=== PATIENT | male | born 1955 | race Caucasian/White ===

== ENCOUNTER 2020-06-25 09:25 | Emergency (ER) | payer MEDICARE, MEDICAID ==
[~2020-06-25] VITALS: Ht 167.6 cm; Wt 79.6 kg
[2020-06-25 09:28] VITALS: BP 213/95
[2020-06-25] MEDS ORDERED: ketorolac tromethamine 15mg/ml inj. IM ONE (09:50)
[2020-06-25] MEDS ORDERED: IBUP-1984 PO (09:55)
== END 2020-06-25 10:03 | disposition home or self-care (01) ==
LOC: ER 09:26
DX: M79.632 Pain in left forearm (principal); G89.29 Other chronic pain; M54.9 Dorsalgia, unspecified; G80.9 Cerebral palsy, unspecified
CPT/HCPCS: 96372; 99283; J1885

== ENCOUNTER 2020-07-11 15:56 | Emergency (ER) | payer MEDICARE, MEDICAID ==
[~2020-07-11] VITALS: Ht 160 cm; Wt 75.0 kg
[2020-07-11 16:04] VITALS: BP 178/96
[2020-07-11 16:46] LABS: BASOPHILS % (AUTO) 0.5 % (0-1); EOSINOPHILS # (AUTO) 0.1 X10'3 (0-0.9); EOSINOPHILS % (AUTO) 0.8 % (0-6); HEMATOCRIT 45.1 % (42.0-52.0); HEMOGLOBIN 15.4 g/dl (14.0-17.9); LYMPHOCYTES # (AUTO) 1.2 X10'3 (1.1-4.8); LYMPHOCYTES % (AUTO) 15.1 % (21-51); MEAN CORPUSCULAR HEMOGLOBIN 28.8 PG (27.0-31.0); MEAN CORPUSCULAR HGB CONC 34.2 g/dL (33.0-36.5); MEAN CORPUSCULAR VOLUME 84.4 FL (78-98); MEAN PLATELET VOLUME 8.6 FL (7.4-10.4); MONOCYTES # (AUTO) 0.4 X10'3 (0-0.9); MONOCYTES % (AUTO) 5.6 % (2-12); PLATELET COUNT 260 X10'3 (140-440); RED BLOOD COUNT 5.35 X10'6 (4.70-6.10); RED CELL DISTRIBUTION WIDTH 15.1 % (11.5-14.5); WHITE BLOOD COUNT 7.7 X10'3 (4.5-11.0)
[2020-07-11 17:03] LABS: ALANINE AMINOTRANSFERASE 29 U/L (12-78); ALBUMIN 3.9 G/DL (3.4-5.0); ALBUMIN/GLOBULIN RATIO 1.3 (1.1-1.5); ALKALINE PHOSPHATASE 73 IU/L (46-116); ANION GAP 10 (8-16); ASPARTATE AMINO TRANSFERASE 11 U/L (10-37); BLOOD UREA NITROGEN 13 MG/DL (7-18); BUN/CREATININE RATIO 16.9 (5.4-32.0); CALCIUM 8.4 MG/DL (8.5-10.1); CHLORIDE 107 MMOL/L (99-107); CREATININE 0.77 MG/DL (0.60-1.10); GLUCOSE 105 MG/DL (70-104); POTASSIUM 3.1 MMOL/L (3.5-5.1); SODIUM 142 MMOL/L (135-145); TOTAL CARBON DIOXIDE 25.2 MMOL/L (24-32); eGFR > 90 ML/MIN
[2020-07-11] MEDS ORDERED: ketorolac tromethamine 15mg/ml inj. IM ONE (17:25)
[2020-07-11] MEDS ORDERED: ketorolac trometh. 30mg/ml inj. IM ONE (17:35)
[2020-07-11] MEDS ORDERED: potassium Cl 20 mEq SR tablet PO STA (18:55)
== END 2020-07-11 19:35 | disposition home or self-care (01) ==
LOC: ER 15:57
DX: M79.602 Pain in left arm (principal); G89.29 Other chronic pain; F17.200 Nicotine dependence, unspecified, uncomplicated
CPT/HCPCS: 36415; 71045; 80053; 83880; 84484; 85025; 93005; 99285

== ENCOUNTER 2021-03-04 06:51 | Inpatient (IN) | payer MEDICARE, MEDICAID ==
[2021-03-04] VITALS (14 sets, daily range): BP systolic 123–157; BP diastolic 58–86
[~2021-03-04] VITALS: Ht 167.6 cm; Wt 72.7 kg
[2021-03-04] MEDS ORDERED: normal saline 1000ml 1,000 ML IV ONE ×2 (07:05→11:15)
[2021-03-04] MEDS ORDERED: morphine 4 MG/ML inj SYRINge IV ONE (07:05)
[2021-03-04] MEDS ORDERED: ondansetron/PF 4mg/2ml inj IV ONE (07:05)
[2021-03-04 10:34] LABS: BASOPHILS % (AUTO) 0.1 % (0-1); EOSINOPHILS % (AUTO) 0.2 % (0-6); HEMATOCRIT 47.7 % (42.0-52.0); HEMOGLOBIN 15.8 g/dl (14.0-17.9); LYMPHOCYTES # (AUTO) 0.8 X10'3 (1.1-4.8); MEAN CORPUSCULAR HEMOGLOBIN 28.5 PG (27.0-31.0); MEAN CORPUSCULAR HGB CONC 33.1 g/dL (33.0-36.5); MEAN CORPUSCULAR VOLUME 86.1 FL (78-98); MEAN PLATELET VOLUME 8.7 FL (7.4-10.4); MONOCYTES % (AUTO) 6.9 % (2-12); NEUTROPHILS % (AUTO) 86.8 % (42-75); PLATELET COUNT 256 X10'3 (140-440); RED BLOOD COUNT 5.53 X10'6 (4.70-6.10); RED CELL DISTRIBUTION WIDTH 14.8 % (11.5-14.5); WHITE BLOOD COUNT 13.9 X10'3 (4.5-11.0)
[2021-03-04 10:37] LABS: ALANINE AMINOTRANSFERASE 21 U/L (12-78); ALBUMIN/GLOBULIN RATIO 1.2 (1.1-1.5); ALKALINE PHOSPHATASE 74 IU/L (46-116); ANION GAP 12 (8-16); ASPARTATE AMINO TRANSFERASE 13 U/L (10-37); BLOOD UREA NITROGEN 18 MG/DL (7-18); BUN/CREATININE RATIO 23.1 (5.4-32.0); CALCIUM 8.3 MG/DL (8.5-10.1); CHLORIDE 108 MMOL/L (99-107); CREATININE 0.78 MG/DL (0.60-1.10); GLUCOSE 106 MG/DL (70-104); POTASSIUM 3.7 MMOL/L (3.5-5.1); SODIUM 146 MMOL/L (135-145); TOTAL CARBON DIOXIDE 25.9 MMOL/L (24-32); TOTAL PROTEIN 7.4 G/DL (6.4-8.2); eGFR > 90 ML/MIN
[2021-03-04 10:41] LABS: BILIRUBIN,DIRECT 0.2 MG/DL (0-0.3); LIPASE 73 U/L (73-393); TROPONIN I < 0.04 NG/ML (0.0-0.05)
--- NOTE | 2021-03-04 11:00 | NUR ---
Pt is awake and alert. C/O upper abd pain and pain in L side of chest. Denies sob.
[2021-03-04] MEDS ORDERED: iohexol 300mg/ml 100ml inj. ONE (11:20)
[2021-03-04 12:00] LABS: COLOR,URINE YELLOW (Yellow); GLUCOSE, URINE NEGATIVE (Neg); KETONES,URINE 40 mg/dl (Neg); LEUKOCYTE ESTERASE ,URINE NEGATIVE (Neg); NITRITES, URINE NEGATIVE (Neg); OCCULT BLOOD,URINE TRACE-INTACT (Neg); PH,URINE 5.5 (4.8-8.0); PROTEIN,URINE NEGATIVE (Neg); UROBILINOGEN,URINE 0.2 E.U/dL (0.2-1.0)
[2021-03-04 12:01] LABS: CLARITY,URINE SLIGHTLY CLOUDY (Clear); UA COLLECTION TYPE VOIDED
[2021-03-04 12:07] LABS: MUCUS STRANDS MODERATE /LPF (Neg); SQUAMOUS EPITHELIAL CELL,UR FEW /LPF (FEW)
[2021-03-04 12:08] LABS: BACTERIA,URINE FEW /HPF (Neg)
[2021-03-04 12:09] LABS: CAL OXALATE CRYSTALS FEW /HPF (NEGATIVE); WBC,URINE 0-4 /HPF (0-4)
[2021-03-04] MEDS ORDERED: morphine 2 MG/ML inj. syringe IV PRN ×3 (16:15→17:45)
[2021-03-04] MEDS ORDERED: ondansetron/PF 4mg/2ml inj IV PRN ×2 (16:15→17:45)
[2021-03-04] MEDS ORDERED: acetaminophen 325mg tablet PO PRN (16:15)
[2021-03-04] MEDS ORDERED: potassium Cl 40MEQ/1/2NS 520ml 520 ML IV PRN ×2 (16:15)
[2021-03-04] MEDS ORDERED: INDOCYANINE GREEN 25 MG/10 ML VIAL IV ONE (16:20)
[2021-03-04] MEDS ORDERED: piperacillin/tazo 4.5gm/100ml 100 ML IV ONE (16:25)
[2021-03-04] MEDS ORDERED: BUPIVAcaine 0.5% inj/PF 30 ML ONE (16:28)
[2021-03-04] MEDS ORDERED: LIDOcaine 1% 30ml preserv. free vial ONE (16:28)
[2021-03-04] MEDS ORDERED: ASPI-109 PO (16:59)
[2021-03-04] MEDS: levoFLOXACIN-Levaquin 500mg/D5 100 ML IV SCH (17:11)
--- NOTE | 2021-03-04 17:16 | NUR ---
Report given to Josephine in the OR.
[2021-03-04] MEDS ORDERED: morphine 4 MG/ML inj SYRINge IV PRN (17:45)
[2021-03-04] MEDS ORDERED: proCHLORperazine 10 MG/2 ml inj IV PRN (17:45)
[2021-03-04] MEDS ORDERED: meperidine/PF 25mg/ml syringe IV PRN ×3 (17:45)
[2021-03-04] MEDS ORDERED: ringers solution, lacted 1,000 ML IV SCH (17:45)
[2021-03-04] MEDS ORDERED: rocuronium 10mg/ml inj IV ONE (17:49)
[2021-03-04] MEDS ORDERED: fentaNYL/PF 50MCG/1 ML 2ML syringe ONE (17:49)
[2021-03-04] MEDS ORDERED: propofol inj 20 ML IV ONE (17:49)
[2021-03-04] MEDS ORDERED: midazolam 1 mg/ML 2ml injection ONE (17:49)
[2021-03-04] MEDS ORDERED: sevoflurane 250ml liquid IH ONE (17:54)
[2021-03-04] MEDS ORDERED: neostigmine methylsulfate 1 MG/ML 10ml vial ONE (19:09)
[2021-03-04] MEDS ORDERED: glycopyrrolate 0.2mg/ml inj ONE (19:09)
--- NOTE | 2021-03-04 19:30 | NUR ---
Received from OR via BED, accompanied by Anesthesiologist DR LAZO and report given by Anesthesiologist. PATIENT STILL DROWSY, NO S/S OF PAIN, V/S WNL, SCD ON, 20G TO RUE, LAP SURGICAL SITES X 4 TO ABDOMEN- CDI.
[2021-03-04] MEDS ORDERED: HYDROcodone/acetaminophen 10/325mg tab PO PRN (19:35)
[2021-03-04] MEDS: K and/or MAG REPLACEMENT MC SCH (20:00)
[2021-03-04] MEDS ORDERED: piperacillin/tazo 4.5gm/100ml 100 ML IV SCH (20:00)
[2021-03-04] MEDS: normal saline 1000ml 1,000 ML IV SCH (20:34)
--- NOTE | 2021-03-04 20:40 | NUR ---
PT AWAKE, ABLE TO ANSWER QUESTIONS APPROPRIATELY, VSS, C/O DULL PAIN IN TUMMY 'KIND OF LIKE GAS" EDUCATED REGARDING TYPE OF SURGERY AND WHAT TO EXPECT AFTERWARD. PIV 20G TO RIGHT FA-NS RUNNING AT 100ML/HR, LAP SITES X4 - CDI, SCDS IN PLACE, PATIENT TAKEN TO ROOM 356A WITH ALL BELONGINGS AND HOOKED UP TO MONITORS IN ROOM AND GIVEN CALL LIGHT, REPORT GIVEN TO ELVIN SALAZAR WHO HAS TAKEN OVER PATIENT CARE.
[2021-03-05] VITALS: BP 124/70
[2021-03-05 00:30] VITALS: BP 126/66
[2021-03-05] MEDS: normal saline 1000ml 1,000 ML IV SCH ×3 (04:57→19:52)
[2021-03-05 06:13] LABS: BASOPHILS % (AUTO) 0.1 % (0-1); EOSINOPHILS % (AUTO) 0.1 % (0-6); HEMATOCRIT 43.5 % (42.0-52.0); HEMOGLOBIN 14.3 g/dl (14.0-17.9); LYMPHOCYTES # (AUTO) 0.8 X10'3 (1.1-4.8); LYMPHOCYTES % (AUTO) 6.7 % (21-51); MEAN CORPUSCULAR HEMOGLOBIN 28.4 PG (27.0-31.0); MEAN CORPUSCULAR HGB CONC 32.9 g/dL (33.0-36.5); MEAN CORPUSCULAR VOLUME 86.5 FL (78-98); MEAN PLATELET VOLUME 8.6 FL (7.4-10.4); MONOCYTES # (AUTO) 1.2 X10'3 (0-0.9); MONOCYTES % (AUTO) 9.9 % (2-12); NEUTROPHILS # (AUTO) 10.5 X10'3 (1.8-7.7); NEUTROPHILS % (AUTO) 83.2 % (42-75); PLATELET COUNT 199 X10'3 (140-440); RED BLOOD COUNT 5.03 X10'6 (4.70-6.10); RED CELL DISTRIBUTION WIDTH 14.7 % (11.5-14.5); WHITE BLOOD COUNT 12.6 X10'3 (4.5-11.0)
[2021-03-05 06:23] LABS: ALANINE AMINOTRANSFERASE 29 U/L (12-78); ALKALINE PHOSPHATASE 71 IU/L (46-116); ANION GAP 11 (8-16); ASPARTATE AMINO TRANSFERASE 26 U/L (10-37); BILIRUBIN,TOTAL 1.8 MG/DL (0.1-1.0); BLOOD UREA NITROGEN 7 MG/DL (7-18); BUN/CREATININE RATIO 11.9 (5.4-32.0); CALCIUM 7.2 MG/DL (8.5-10.1); CHLORIDE 106 MMOL/L (99-107); CREATININE 0.59 MG/DL (0.60-1.10); GLUCOSE 97 MG/DL (70-104); POTASSIUM 3.4 MMOL/L (3.5-5.1); SODIUM 140 MMOL/L (135-145); TOTAL CARBON DIOXIDE 23.3 MMOL/L (24-32); eGFR > 90 ML/MIN
--- NOTE | 2021-03-05 06:30 | NUR ---
Patient in room [facility]. I have received report from Evelio SALAZAR and had the opportunity to ask questions and assume patient care.
--- NOTE | 2021-03-05 06:31 | NUR ---
Problems reprioritized. Patient report given, questions answered & plan of care reviewed with OSWALDO. Addendum: 03/05/21 at 0631 by Jaspreet Kitchen RN Amended: Links added.
[2021-03-05 07:00] VITALS: BP 133/61
[2021-03-05] MEDS: HYDROcodone/acetaminophen 5mg/325mg tablet PO PRN ×2 (07:59→22:01)
[2021-03-05] MEDS: levoFLOXACIN-Levaquin 500mg/D5 100 ML IV SCH (07:59)
[2021-03-05] MEDS: K and/or MAG REPLACEMENT MC SCH ×2 (08:00→20:00)
--- NOTE | 2021-03-05 08:12 | NUR ---
message sent to Pharmacy: Please send IV bag for K+ replacement (3.4) thank you, Carolyn [phone]
--- NOTE | 2021-03-05 09:00 | NUR ---
Pt seems to have a basic understanding of his medical care and the surgical procedure done- he states surgery was because his "stomach hurt and I think it was because of something I ate". Pt educated to the s/p david rahman with pt verbalizing some understanding to the best of his ability. States he makes his own medical decisions but his sister helps him as well. Will continue to monitor.
[2021-03-05] MEDS ORDERED: pneumococcal 23-VAL P-sac vacc 25 mcg/0.5ml vial IMVAC ONE (10:00)
--- NOTE | 2021-03-05 10:30 | NUR ---
Dr Lee at pt's bedside, report given, advised also of a.m. labs K+ 3.4 (being replaced per PIV), and Ca++ from 8.3 yesterday to 7.2 today. No new orders. Will continue to monitor.
--- NOTE | 2021-03-05 10:42 | NUR ---
Pt's sister Adriana phoned, update given per pt's permission. Will continue to monitor.
[2021-03-05 11:00] VITALS: BP 136/67
--- NOTE | 2021-03-05 14:00 | NUR ---
Pt continues to have hypoactive bowel sounds, states he passed a small amount of gas one time, and is taking in small amount of liquids. Will continue to monitor.
[2021-03-05] MEDS: enoxaparin 40mg/0.4ml syringe SUBCUT SCH (15:31)
--- NOTE | 2021-03-05 18:17 | NUR ---
Problems reprioritized. Patient report given, questions answered & plan of care reviewed with Dara SALAZAR.
[2021-03-05] MEDS ORDERED: calcium gluconate inj. 1 GM in normal saline 100ml IV soln 100 ML IV ONE (18:30)
[2021-03-05] MEDS ORDERED: CALCIUM GLUC 1gm/50ml NACL,iso 50 ML IV ONE (18:35)
[2021-03-05 19:00] VITALS: BP 105/66
[2021-03-05] MEDS: lactobacillus rhamnosus 10,000 MMU CELLS/CAPSULE PO SCH (19:12)
[2021-03-06] VITALS: BP 132/74
[2021-03-06] MEDS: HYDROcodone/acetaminophen 5mg/325mg tablet PO PRN (05:28)
[2021-03-06] MEDS: normal saline 1000ml 1,000 ML IV SCH (05:32)
--- NOTE | 2021-03-06 05:45 | NUR ---
Patient has diffuse hives on neck, groin and in armpits. Patient complains of no symptoms. Says he is having no problem breathing problems and is not itchy. was notified and 50 mg of benadryl was ordered and given. Relayed this info to MARTIN Henley
[2021-03-06] MEDS ORDERED: diphenhydrAMINE 25mg capsule PO PRN (06:10)
--- NOTE | 2021-03-06 06:32 | NUR ---
Problems reprioritized. Patient report given, questions answered & plan of care reviewed with MARTIN Henley .
[2021-03-06 06:48] LABS: BASOPHILS % (AUTO) 0.3 % (0-1); EOSINOPHILS # (AUTO) 0.1 X10'3 (0-0.9); EOSINOPHILS % (AUTO) 0.9 % (0-6); HEMATOCRIT 44.2 % (42.0-52.0); HEMOGLOBIN 14.7 g/dl (14.0-17.9); LYMPHOCYTES % (AUTO) 9.2 % (21-51); MEAN CORPUSCULAR HEMOGLOBIN 28.7 PG (27.0-31.0); MEAN CORPUSCULAR HGB CONC 33.2 g/dL (33.0-36.5); MEAN CORPUSCULAR VOLUME 86.6 FL (78-98); MEAN PLATELET VOLUME 8.8 FL (7.4-10.4); MONOCYTES # (AUTO) 0.9 X10'3 (0-0.9); MONOCYTES % (AUTO) 8.9 % (2-12); NEUTROPHILS # (AUTO) 8.4 X10'3 (1.8-7.7); NEUTROPHILS % (AUTO) 80.7 % (42-75); PLATELET COUNT 196 X10'3 (140-440); RED CELL DISTRIBUTION WIDTH 14.4 % (11.5-14.5); WHITE BLOOD COUNT 10.4 X10'3 (4.5-11.0)
--- NOTE | 2021-03-06 06:54 | NUR ---
Patient in room [facility]. I have received report from BRAXTON SALAZAR and had the opportunity to ask questions and assume patient care.
[2021-03-06 07:12] LABS: ALANINE AMINOTRANSFERASE 26 U/L (12-78); ALBUMIN 2.9 G/DL (3.4-5.0); ALBUMIN/GLOBULIN RATIO 0.9 (1.1-1.5); ALKALINE PHOSPHATASE 72 IU/L (46-116); ANION GAP 13 (8-16); ASPARTATE AMINO TRANSFERASE 18 U/L (10-37); BILIRUBIN,TOTAL 1.6 MG/DL (0.1-1.0); BLOOD UREA NITROGEN 6 MG/DL (7-18); BUN/CREATININE RATIO 9.2 (5.4-32.0); CALCIUM 7.7 MG/DL (8.5-10.1); CHLORIDE 109 MMOL/L (99-107); CREATININE 0.65 MG/DL (0.60-1.10); GLUCOSE 86 MG/DL (70-104); POTASSIUM 3.4 MMOL/L (3.5-5.1); SODIUM 143 MMOL/L (135-145); TOTAL CARBON DIOXIDE 21.4 MMOL/L (24-32); TOTAL PROTEIN 6.3 G/DL (6.4-8.2); eGFR > 90 ML/MIN
[2021-03-06 07:16] VITALS: BP 138/72
[2021-03-06] MEDS: K and/or MAG REPLACEMENT MC SCH (08:00)
[2021-03-06] MEDS: levoFLOXACIN-Levaquin 500mg/D5 100 ML IV SCH (09:45)
[2021-03-06] MEDS: enoxaparin 40mg/0.4ml syringe SUBCUT SCH (09:46)
[2021-03-06] MEDS: lactobacillus rhamnosus 10,000 MMU CELLS/CAPSULE PO SCH (09:46)
[2021-03-06] MEDS ORDERED: POTA20TA19 PO (10:35)
[2021-03-06] MEDS ORDERED: HYDR-3964 PO (10:35)
--- NOTE | 2021-03-06 12:00 | NUR ---
PATIENT DISCHARGE TO FAMILY, IV TAKEN OUT AT DISCHARGE CANULA WHOLE AND INTACT UPON INSPECTION. PATIENT EXPRESSED VERBAL UNDERSTANDING OF DISCHARGE TEACHING AND NEW MEDICATION AT TIME OF DISCHARGE. PATIENT LEFT WITH ALL BELONGINGS AT THE TIME OF DISCHARGE AND WAS TAKEN TO [facility] WHEEL CHAIR AND LEFT IN PRIVATE VEHICLE WITH NO OTHER SERVICES WILL FOLLOW UP DIRECTED IN DISCHARGE.
== END 2021-03-06 12:25 | disposition home or self-care (01) | DRG 419 ==
LOC: ER 06:51 → ED HOLD 16:17 → SUR 3N 20:46
PROVIDERS: ADMIT Internal Medicine; ATTEND Family Medicine
PROC: 8E0W4CZ Robotic Assisted Procedure of Trunk Region, Percutaneous Endoscopic Approach (ICD-10-PCS; 2021-03-04)
PROC: BF532Z0 Other Imaging of Gallbladder and Bile Ducts using Fluorescing Agent, Intraoperative (ICD-10-PCS; 2021-03-04)
PROC: BW211ZZ Computerized Tomography (CT Scan) of Abdomen and Pelvis using Low Osmolar Contrast (ICD-10-PCS; 2021-03-04)
PROC: 0FT44ZZ Resection of Gallbladder, Percutaneous Endoscopic Approach (ICD-10-PCS; principal; 2021-03-04 17:54)
PROC: 3E0234Z Introduction of Serum, Toxoid and Vaccine into Muscle, Percutaneous Approach (ICD-10-PCS; 2021-03-05)
DX: K80.63 Calculus of gallbladder and bile duct with acute cholecystitis with obstruction (principal); G80.9 Cerebral palsy, unspecified; Z20.822 Contact with and (suspected) exposure to COVID-19; F17.290 Nicotine dependence, other tobacco product, uncomplicated; E83.51 Hypocalcemia; G89.29 Other chronic pain; M54.9 Dorsalgia, unspecified; Z79.82 Long term (current) use of aspirin; Z23 Encounter for immunization; E87.6 Hypokalemia; E80.6 Other disorders of bilirubin metabolism
CPT/HCPCS: 36415; 71045; 74177; 76700; 80048; 80053; 80076; 81001; 82330; 83690; 84484; 85025; 87081; 87635; 88304; 93005; 96374; 99285; A4215; A4618; A7000; G0378; J1650; J1956; J2001; J2250; J2270; J2405; J2704; J2710; J3010; J3480; J3490; J7030; J7120; Q0163; Q9967